=== PATIENT | female | born 1935 | race Caucasian/White ===

== ENCOUNTER → 2017-01-29 | Outpatient (CLI) | payer OTHER ==
[2017-01-29 10:16] LABS: Basophils # (auto) 0 uL; Basophils % (auto) 0.4 % (0.0-2.0); Eosinophils # (auto) 0.4 uL; Eosinophils % (auto) 3.9 % (0.0-7.0); Hematocrit 41.1 % (36.0-46.0); Hemoglobin 13.4 g/dL (12.2-16.2); Lymphocytes # (auto) 2.8 uL; Lymphocytes % (auto) 27.2 % (10.0-50.0); Mean Corpuscular Hemoglobin 30.3 pg (28.0-32.0); Mean Corpuscular Hgb Conc. 32.6 g/dL (32.0-36.0); Mean Corpuscular Volume 92.8 fL (80.0-100.0); Mean Platelet Volume 7.7 fL (7.4-10.4); Monocytes # (auto) 0.6 uL; Monocytes % (auto) 6.1 % (0.0-12.0); Neutrophils # (auto) 6.4 uL; Neutrophils % (auto) 62.4 % (37.0-80.0); Platelet Count (auto) 446 10^3/uL (140-450); Red Cell Distribution Width 14.1 % (11.6-16.0); White Blood Cell 10.2 10^3/uL (4.4-10.8)
== END | disposition home or self-care (01) ==
LOC: LAB 08:50
PROVIDERS: ATTEND Internal Medicine
DX: E11.9 Type 2 diabetes mellitus without complications (principal)
CPT/HCPCS: 36415; 80061; 83036; 85025; 85652; 86141

== ENCOUNTER → 2017-05-21 | Outpatient (CLI) | payer OTHER ==
[2017-05-21 12:53] LABS: Albumin 3.8 g/dL (3.4-5.0); BUN/Creatinine Ratio 17.8; Bilirubin, Total 0.6 mg/dL (0.2-1.0); Calcium 9.2 mg/dL (8.5-10.1); Potassium 4.1 mmol/L (3.5-5.1); Total Protein 7.7 g/dL (6.4-8.2); Uric Acid 6.6 mg/dL (2.6-6.0)
== END | disposition home or self-care (01) ==
LOC: LAB 11:11
PROVIDERS: ATTEND Internal Medicine
DX: E11.9 Type 2 diabetes mellitus without complications (principal); N18.3 Chronic kidney disease, stage 3 (moderate)
CPT/HCPCS: 36415; 80053; 83036; 84439; 84443; 84550

== ENCOUNTER → 2017-09-11 | Outpatient (CLI) | payer OTHER ==
[2017-09-11 11:38] LABS: Albumin 3.7 g/dL (3.4-5.0); BUN/Creatinine Ratio 17.1; Bilirubin, Total 1.1 mg/dL (0.2-1.0); Calcium 9.2 mg/dL (8.5-10.1); Potassium 4.2 mmol/L (3.5-5.1); Total Protein 7.7 g/dL (6.4-8.2)
== END | disposition home or self-care (01) ==
LOC: LAB 10:13
PROVIDERS: ATTEND Internal Medicine
DX: E11.22 Type 2 diabetes mellitus with diabetic chronic kidney disease (principal); N18.3 Chronic kidney disease, stage 3 (moderate); F11.20 Opioid dependence, uncomplicated
CPT/HCPCS: 36415; 80053; 80061; 80307; 83036

== ENCOUNTER → 2018-02-07 | Outpatient (CLI) | payer OTHER ==
[2018-02-07 11:27] LABS: BUN/Creatinine Ratio 12.8; Bilirubin, Total 0.6 mg/dL (0.2-1.0); Calcium 9.7 mg/dL (8.5-10.1); Potassium 4.3 mmol/L (3.5-5.1); Total Protein 7.9 g/dL (6.4-8.2); Uric Acid 5.5 mg/dL (2.6-6.0)
== END | disposition home or self-care (01) ==
LOC: LAB 10:52
PROVIDERS: ATTEND Internal Medicine
DX: E11.9 Type 2 diabetes mellitus without complications (principal); E78.5 Hyperlipidemia, unspecified
CPT/HCPCS: 36415; 80053; 80061; 83036; 84550

== ENCOUNTER → 2018-05-09 | Outpatient (CLI) | payer OTHER ==
[2018-05-09 13:32] LABS: Albumin 3.7 g/dL (3.4-5.0); BUN/Creatinine Ratio 16.4; Calcium 8.7 mg/dL (8.5-10.1); Potassium 4.4 mmol/L (3.5-5.1)
[2018-05-09 13:35] LABS: Bilirubin, Total 0.7 mg/dL (0.2-1.0); Total Protein 7.7 g/dL (6.4-8.2)
[2018-05-09 13:38] LABS: Basophils # (auto) 0.1 uL; Basophils % (auto) 0.5 % (0.0-2.0); Eosinophils # (auto) 0.4 uL; Eosinophils % (auto) 3.7 % (0.0-7.0); Hematocrit 39.1 % (36.0-46.0); Hemoglobin 13.3 g/dL (12.2-16.2); Lymphocytes # (auto) 3.5 uL; Lymphocytes % (auto) 35.2 % (10.0-50.0); Mean Corpuscular Hemoglobin 31.9 pg (28.0-32.0); Mean Corpuscular Hgb Conc. 34.1 g/dL (32.0-36.0); Mean Corpuscular Volume 93.6 fL (80.0-100.0); Monocytes # (auto) 0.6 uL; Monocytes % (auto) 5.9 % (0.0-12.0); Neutrophils # (auto) 5.5 uL; Neutrophils % (auto) 54.7 % (37.0-80.0); Platelet Count (auto) 308 10^3/uL (140-450); Red Blood Cells 4.18 10^6/uL (4.0-5.20); Red Cell Distribution Width 13.6 % (11.8-14.3); Uric Acid 5.1 mg/dL (2.6-6.0)
== END | disposition home or self-care (01) ==
LOC: LAB 12:46
PROVIDERS: ATTEND Internal Medicine
DX: I12.9 Hypertensive chronic kidney disease with stage 1 through stage 4 chronic kidney disease, or unspecified chronic kidney disease (principal); E11.22 Type 2 diabetes mellitus with diabetic chronic kidney disease; N18.3 Chronic kidney disease, stage 3 (moderate)
CPT/HCPCS: 36415; 80053; 82306; 83036; 83970; 84550; 85025

== ENCOUNTER 2018-08-09 17:38 | Emergency (ER) | payer OTHER ==
[~2018-08-09] VITALS: Ht 162.6 cm; Wt 57.2 kg
[2018-08-09 20:19] VITALS: BP 131/80
[2018-08-09] MEDS ORDERED: MEPERIDINE HCL (25 MG/ML) 1ML VIAL IV ONE (21:00)
[2018-08-09] MEDS ORDERED: SODIUM CHLORIDE 0.9% 1,000 ML IV ONE (21:00)
[2018-08-09] MEDS ORDERED: ONDANSETRON HCL 4 MG/2 ML VIAL IV ONE (21:00)
== END 2018-08-09 22:04 | disposition home or self-care (01) ==
LOC: ER 17:43
DX: S00.93XA Contusion of unspecified part of head, initial encounter (principal); M62.838 Other muscle spasm; I10 Essential (primary) hypertension; W01.0XXA Fall on same level from slipping, tripping and stumbling without subsequent striking against object, initial encounter; Y93.89 Activity, other specified; Y99.8 Other external cause status; Y92.89 Other specified places as the place of occurrence of the external cause
CPT/HCPCS: 70450; 96374; 96375; 99284; J2175; J2405; J7030

== ENCOUNTER 2019-01-31 01:42 | Emergency (ER) | payer OTHER ==
[~2019-01-31] VITALS: Ht 160 cm; Wt 59.0 kg
[2019-01-31 02:35] LABS: Basophils # (auto) 0.1 uL; Basophils % (auto) 0.7 % (0.0-2.0); Eosinophils # (auto) 0.2 uL; Eosinophils % (auto) 1.4 % (0.0-7.0); Hematocrit 42.5 % (36.0-46.0); Hemoglobin 14.2 g/dL (12.2-16.2); Lymphocytes # (auto) 2.5 uL; Lymphocytes % (auto) 21.5 % (10.0-50.0); Mean Corpuscular Hemoglobin 31.2 pg (28.0-32.0); Mean Corpuscular Hgb Conc. 33.5 g/dL (32.0-36.0); Mean Corpuscular Volume 93.2 fL (80.0-100.0); Monocytes # (auto) 0.6 uL; Monocytes % (auto) 4.8 % (0.0-12.0); Neutrophils # (auto) 8.3 uL; Neutrophils % (auto) 71.6 % (37.0-80.0); Nucleated Red Blood Cells % 0.1 %; Platelet Count (auto) 307 10^3/uL (140-450); Red Blood Cells 4.56 10^6/uL (4.0-5.20); Red Cell Distribution Width 13.2 % (11.8-14.3); White Blood Cell 11.6 10^3/uL (4.4-10.8)
[2019-01-31 02:53] LABS: INR 1.01 (0.9-1.15); Prothrombin Time 10.8 sec (9.27-12.13)
[2019-01-31 02:54] LABS: Alanine Aminotransferase 18 U/L (13-56); Albumin 3.8 g/dL (3.4-5.0); Anion Gap 8 (5-15); Aspartate Aminotransferase 15 U/L (15-37); BUN/Creatinine Ratio 19.8; Blood Urea Nitrogen 20 mg/dL (7-18); Calcium 9.1 mg/dL (8.5-10.1); Carbon Dioxide 24 mmol/L (21-32); Chloride 105 mmol/L (98-107); GFR African American 67 mL/min; GFR Non-African American 56 mL/min; Glucose 134 mg/dL (74-106); Potassium 3.6 mmol/L (3.5-5.1); Sodium 137 mmol/L (136-145)
[2019-01-31 02:58] LABS: Alkaline Phosphatase 67 U/L (45-117); Total Protein 7.6 g/dL (6.4-8.2)
[2019-01-31] MEDS ORDERED: ONDANSETRON HCL 4 MG/2 ML VIAL IV ONE (06:00)
[2019-01-31 06:28] VITALS: BP 146/72
== END 2019-01-31 08:36 | disposition home or self-care (01) ==
LOC: EDBD 01:42 → ER 01:50
DX: S46.912A Strain of unspecified muscle, fascia and tendon at shoulder and upper arm level, left arm, initial encounter (principal); R42 Dizziness and giddiness; E11.9 Type 2 diabetes mellitus without complications; E78.5 Hyperlipidemia, unspecified; I10 Essential (primary) hypertension; Z90.710 Acquired absence of both cervix and uterus; W19.XXXA Unspecified fall, initial encounter; Y93.89 Activity, other specified; Y92.89 Other specified places as the place of occurrence of the external cause; Y99.8 Other external cause status
CPT/HCPCS: 36415; 71045; 74176; 80053; 83880; 84484; 85025; 85610; 85730; 93005; 96374; 99284; J2405

== ENCOUNTER → 2019-02-14 | Outpatient (CLI) | payer OTHER ==
[2019-02-14 09:49] LABS: Urine Bacteria FEW /hpf (None Seen); Urine Blood Negative /uL (Negative); Urine Specific Gravity 1.013 (1.001-1.035); Urine WBC 1 /hpf (0 - 5)
[2019-02-14 09:58] LABS: Cholesterol 162 mg/dL (< 200); HDL Cholesterol 66 mg/dL (40-59); LDL Cholesterol 79 mg/dL (< 100); Triglycerides 99 mg/dL (< 150)
[2019-02-14 11:12] LABS: Alcohol, Urine < 3.0 mg/dL (0-5); Amphetamine Screen, Urine NEGATIVE (NEGATIVE); Barbiturate Scree,Urine NEGATIVE (NEGATIVE); Benzodiazephine Screen, Urine NEGATIVE (NEGATIVE); Cannabinoid Screen, Urine NEGATIVE (NEGATIVE); Cocaine Screen, Urine NEGATIVE (NEGATIVE); Opiate Scree,Urine POSITIVE (NEGATIVE); Phencyclidine Screen, Urine NEGATIVE (NEGATIVE)
== END | disposition home or self-care (01) ==
LOC: LAB 08:59
PROVIDERS: ATTEND Internal Medicine
DX: E11.9 Type 2 diabetes mellitus without complications (principal); F11.90 Opioid use, unspecified, uncomplicated
CPT/HCPCS: 36415; 80061; 80307; 81001; 83036

== ENCOUNTER → 2019-02-21 | Outpatient (CLI) | payer OTHER | END | disposition home or self-care (01) | LOC: LAB 11:18 | PROVIDERS: ATTEND Internal Medicine | DX: F41.9 Anxiety disorder, unspecified (principal); I10 Essential (primary) hypertension; E11.9 Type 2 diabetes mellitus without complications | CPT/HCPCS: 36415; 84439; 84443 ==

== ENCOUNTER → 2019-08-15 | Outpatient (CLI) | payer OTHER ==
[2019-08-15 12:31] LABS: Albumin 3.8 g/dL (3.4-5.0); Calcium 9.4 mg/dL (8.5-10.1); Potassium 4.1 mmol/L (3.5-5.1)
[2019-08-15 12:35] LABS: BUN/Creatinine Ratio 14.3; Bilirubin, Total 0.8 mg/dL (0.2-1.0); Total Protein 7.3 g/dL (6.4-8.2); Uric Acid 4.8 mg/dL (2.6-6.0)
== END | disposition home or self-care (01) ==
LOC: LAB 11:14
PROVIDERS: ATTEND Internal Medicine
DX: E11.22 Type 2 diabetes mellitus with diabetic chronic kidney disease (principal); N18.3 Chronic kidney disease, stage 3 (moderate)
CPT/HCPCS: 36415; 80053; 82306; 83036; 84550

== ENCOUNTER → 2019-09-17 | Outpatient (CLI) | payer OTHER ==
[2019-09-17 14:29] LABS: Alcohol, Urine < 3.0 mg/dL (0-5); Amphetamine Screen, Urine NEGATIVE (NEGATIVE); Barbiturate Scree,Urine NEGATIVE (NEGATIVE); Benzodiazephine Screen, Urine NEGATIVE (NEGATIVE); Cannabinoid Screen, Urine NEGATIVE (NEGATIVE); Cocaine Screen, Urine NEGATIVE (NEGATIVE); Phencyclidine Screen, Urine NEGATIVE (NEGATIVE)
[2019-09-17 14:36] LABS: Opiate Scree,Urine POSITIVE (NEGATIVE)
== END | disposition home or self-care (01) ==
LOC: LAB 13:20
PROVIDERS: ATTEND Internal Medicine
DX: F11.20 Opioid dependence, uncomplicated (principal)
CPT/HCPCS: 80307

== ENCOUNTER 2020-04-27 12:23 | Inpatient (IN) | payer OTHER ==
[~2020-04-27] VITALS: Ht 152.4 cm; Wt 42.2 kg
[2020-04-27] MEDS ORDERED: SODIUM CHLORIDE 0.9% 1,000 ML IV ONE (12:50)
[2020-04-27 13:46] LABS: Basophils # (auto) 0.1 10 ^3/uL (0-0.2); Eosinophils # (auto) 0.2 10 ^3/uL (0-0.8); Eosinophils % (auto) 2.5 % (0.0-7.0); Hematocrit 32.9 % (36.0-46.0); Hemoglobin 10.6 g/dL (12.2-16.2); Lymphocytes # (auto) 2.4 10 ^3/uL (0.4-5.4); Lymphocytes % (auto) 31.1 % (10.0-50.0); Mean Corpuscular Hemoglobin 29.3 pg (28.0-32.0); Mean Corpuscular Hgb Conc. 32.4 g/dL (32.0-36.0); Mean Corpuscular Volume 90.3 fL (80.0-100.0); Monocytes # (auto) 0.7 10 ^3/uL (0-1.3); Monocytes % (auto) 8.7 % (0.0-12.0); Neutrophils # (auto) 4.4 10 ^3/uL (1.6-8.6); Neutrophils % (auto) 56.7 % (37.0-80.0); Nucleated Red Blood Cells % 0.1 %; Platelet Count (auto) 366 10^3/uL (140-450); Red Blood Cells 3.64 10^6/uL (4.0-5.20); Red Cell Distribution Width 15.3 % (11.8-14.3); White Blood Cell 7.7 10^3/uL (4.4-10.8)
[2020-04-27 14:29] LABS: Albumin 2.3 g/dL (3.4-5.0); Anion Gap 6 (5-15); Calcium 8.4 mg/dL (8.5-10.1); Carbon Dioxide 27 mmol/L (21-32); Chloride 107 mmol/L (98-107); Glucose 109 mg/dL (74-106); Sodium 140 mmol/L (136-145)
[2020-04-27 14:35] LABS: Alanine Aminotransferase 13 U/L (13-56); Alkaline Phosphatase 65 U/L (45-117); Aspartate Aminotransferase 16 U/L (15-37); Bilirubin, Total 0.4 mg/dL (0.2-1.0); GFR African American 118 mL/min; GFR Non-African American 97 mL/min
[2020-04-27 14:37] LABS: Potassium 2.9 mmol/L (3.5-5.1)
[2020-04-27 14:49] LABS: BUN/Creatinine Ratio 17.7; Blood Urea Nitrogen 11 mg/dL (7-18)
[2020-04-27 15:15] LABS: Urine Amorphous Crystal FEW /hpf (None Seen); Urine Bacteria NONE SEEN /hpf (None Seen); Urine Blood Negative /uL (Negative); Urine Mucus FEW (None Seen); Urine Specific Gravity 1.016 (1.001-1.035); Urine WBC 2 /hpf (0 - 5)
[2020-04-27 15:27] LABS: Amphetamine Screen, Urine NEGATIVE (NEGATIVE); Barbiturate Scree,Urine NEGATIVE (NEGATIVE); Benzodiazephine Screen, Urine NEGATIVE (NEGATIVE); Cannabinoid Screen, Urine NEGATIVE (NEGATIVE); Cocaine Screen, Urine NEGATIVE (NEGATIVE); Phencyclidine Screen, Urine NEGATIVE (NEGATIVE)
[2020-04-27 15:35] LABS: Opiate Scree,Urine POSITIVE (NEGATIVE)
[2020-04-27] MEDS: POTASSIUM CHL 20MEQ/100ML 100 ML IV SCH ×2 (15:53→17:42)
[2020-04-27] MEDS ORDERED: VANCOMYCIN PER PHARMACY 0 MG IV SCH (16:15)
[2020-04-27] MEDS ORDERED: MORPHINE SULF INJ 2 MG/ML SYRINGE 1ML IV PRN ×2 (16:15)
[2020-04-27] MEDS ORDERED: ONDANSETRON HCL 4 MG/2 ML VIAL IV PRN (16:15)
[2020-04-27] MEDS ORDERED: NITROGLYCERIN 0.4 MG SL TAB SL PRN (16:15)
[2020-04-27] MEDS ORDERED: traMADol HCL 50 MG TAB PO PRN (16:15)
[2020-04-27] MEDS: SODIUM CHLORIDE 0.9% 1,000 ML IV SCH (16:35)
--- NOTE | 2020-04-27 17:19 | NUR ---
AIR MATTRESS: Specialty air mattress ordered at [facility],Reference # [id number]; ETA 04/27/20 @2316, Call [facility] if need to follow up at [phone] Addendum: 04/27/20 at 1721 by Deysi Juárez RN Amended: Links added.
[2020-04-27] MEDS: PIPERACILLIN-TAZOB 3.375GM 100 ML IV SCH ×2 (17:42→23:21)
[2020-04-27 20:40] VITALS: BP 92/67
--- NOTE | 2020-04-27 20:40 | NUR ---
Telemetry admit from ER ALEXEYAYO admitted to Telemetry unit after SBAR received. Patient oriented to ANDREW SANDERS, RN primary RN, unit, room, bed, and unit policies regarding patient care and visiting hours. Patient now on continuous telemetry monitoring, tele box # 4 and telemetry reading on arrival to unit is [id number]. Patient on speciality mattressed, meraz draining to gravity, patient AOX1.
[2020-04-27 21:44] VITALS: BP 92/67
[2020-04-27] MEDS: VANCOMYCIN 750mg/250ml 250 ML IV SCH (21:48)
--- NOTE | 2020-04-27 22:40 | NUR ---
Spoke with Family Member Spoke with Cathy Noble for admission questions. Cathy was not able to recall patient's home medications, nor pharmacy.
[2020-04-28] MEDS: SODIUM CHLORIDE 0.9% 1,000 ML IV SCH (05:35)
[2020-04-28 05:47] VITALS: BP 119/67
[2020-04-28 05:53] LABS: Basophils # (auto) 0.1 10 ^3/uL (0-0.2); Basophils % (auto) 0.6 % (0.0-2.0); Eosinophils # (auto) 0.3 10 ^3/uL (0-0.8); Eosinophils % (auto) 2.9 % (0.0-7.0); Hematocrit 34.5 % (36.0-46.0); Lymphocytes # (auto) 1.6 10 ^3/uL (0.4-5.4); Lymphocytes % (auto) 17.9 % (10.0-50.0); Mean Corpuscular Hemoglobin 28.9 pg (28.0-32.0); Mean Corpuscular Hgb Conc. 31.8 g/dL (32.0-36.0); Monocytes # (auto) 0.7 10 ^3/uL (0-1.3); Monocytes % (auto) 7.7 % (0.0-12.0); Neutrophils # (auto) 6.5 10 ^3/uL (1.6-8.6); Neutrophils % (auto) 70.9 % (37.0-80.0); Nucleated Red Blood Cells % 0.1 %; Platelet Count (auto) 309 10^3/uL (140-450); Red Cell Distribution Width 15.8 % (11.8-14.3); White Blood Cell 9.1 10^3/uL (4.4-10.8)
[2020-04-28] MEDS: PIPERACILLIN-TAZOB 3.375GM 100 ML IV SCH ×3 (06:00→18:41)
[2020-04-28 06:19] LABS: Potassium 3.4 mmol/L (3.5-5.1)
[2020-04-28 06:32] LABS: Albumin 2.2 g/dL (3.4-5.0); BUN/Creatinine Ratio 15.4; Bilirubin, Total 0.6 mg/dL (0.2-1.0); Calcium 8.3 mg/dL (8.5-10.1); Total Protein 5.7 g/dL (6.4-8.2)
--- NOTE | 2020-04-28 07:05 | NUR ---
Closing Note Endorsed care to dayshift nurse. No S/S of distress/SOB or pain.
--- NOTE | 2020-04-28 07:30 | NUR ---
RECEIVED REPORT FROM [facility] SHIFT RN. AWAKE, ALERT AND ORIENTED TO SELF. NO SOB OR DISTRESS REPORTED, DENIES PAIN AT THIS TIME. PLAN OF CARE DISCUSSED. ENCOURAGED TO CALL FOR ASSISTANCE PRN. BED IN LOW AND LOCKED POSITION, CALL LIGHT AND PHONE WITHIN REACH. ZENY NOTED, DRAINING CLEAR SHAKEEL. WILL CONTINUE TO MONITOR Q1HR AND PRN.
[2020-04-28 08:00] VITALS: BP 130/88
[2020-04-28 09:00] VITALS: BP 126/73
--- NOTE | 2020-04-28 11:00 | NUR ---
WOUND CARE NOTE: IN TO SEE PATIENT AT THIS TIME PER WOUND CARE CONSULT REQUEST. 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 PATIENT IS RESTING ON SPECIALTY AIR MATTRESS (P 500). CURRENT [place] SCORE IS 11. WOUND PHOTOS TAKEN UPON ADMIT BY BEDSIDE NURSE FOR REFERENCE. PATIENT HAS DEMENTIA, AND IS MAX ASSIST FOR HER ADL'S, INCLUDING TURNING/REPOSITIONING. PATIENT IS NOTED TO HAVE A PINK COLLAGEN SCAR TO THE LEFT HIP. PATIENT TURNED TO LEFT SIDE. 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 THERE IS 2 CM UNDERMINING TO ENTIRE WOUND EDGES.PATIENT HAS LIGHT TO MODERATE SEROUS DRAINAGE WITH LIGHT ODOR. CLEANSED WOUND WITH WOUND CLEANSER, PATTED DRY WITH STERILE GAUZE. PACKED WOUND WITH BETADINE WET TO DRY, UTILIZING KERLIX, STERILE 4 X 4'S. APPLIED ALGINATE OVER WOUND. COVERED ALL WITH OPTIFOAM GENTLE SACRAL DRESSING. ADVISED DR. MARISCAL OF PATIENT'S WOUND STATUS. RECOMMEND: FREQUENT TURN SCHEDULE Q 2 HOURS, PRN CONDITION PERMITS, WITH PRESSURE REDISTRIBUTION USING PILLOWS/WEDGES, DAILY/PRN DRESSING CHANGE TO SACRAL WOUND, DIETARY CONSULT, SPECIALTY AIR BED, ANIVAL FOAM BOOTS, SKIN/WOUND CARE PLAN, CONTINUED MONITORING BY WOUND CARE TEAM. Addendum: 04/28/20 at 1436 by Jud Beckford RN Amended: Links added.
[2020-04-28 13:00] VITALS: BP 126/73
[2020-04-28] MEDS ORDERED: LACTULOSE 20Gm/30ML SOLN PO ONE (14:00)
[2020-04-28] MEDS ORDERED: MORPHINE SULF INJ 2 MG/ML SYRINGE 1ML IV PRN (14:15)
--- NOTE | 2020-04-28 14:35 | NUR ---
Nutrition Assessment Notes Please refer to link for full assessment notes. Est Energy needs: 900-1035 kcals (20-23 kcal/kgBW) Est Protein needs: 55-68 gms/day (1.2-1.5 gm/kgBW) d/t P/U Will continue to monitor and reassess prn. Addendum: 04/28/20 at [address] Amended: Links added. Addendum: 04/28/20 at [address] Additional Recommendations: Suggest a daily MVI with 500mg VitC BID
[2020-04-28 17:00] VITALS: BP_SYST 120; BP_SYST 169; BP_DIAS 77; BP_DIAS 82
[2020-04-28] MEDS: SOD CHL 0.45% WITH 20MEQ KCL 1,000 ML IV SCH (17:21)
--- NOTE | 2020-04-28 18:00 | NUR ---
Patient is now Med/surg. Tele discontinued and will send to ICU.
--- NOTE | 2020-04-28 18:44 | NUR ---
checked in on patient few minutes after hanging 1800 antibiotic. Will resume scheduled meds once a new IV line is established. Addendum: 04/28/20 at 1850 by Susie Silva RN Patient had pulled out peripheral IV due to periodic confusion.
--- NOTE | 2020-04-28 20:00 | NUR ---
Opening Shift Note Assumed care of patient. Awake, alert and oriented x1. Patient has periods of confusion. No S/S of distress/SOB or pain. Instructed on POC and to call for assist PRN. Macdonald catheter off the floor, patent and draining yellow colored urine. Bed locked, in lowest position, call light within reach, side rails up x2, bed alarm on. Will continue to monitor for changes Q1hr and PRN.
[2020-04-28] MEDS ORDERED: MORP15TA PO ×2 (20:15)
[2020-04-28] MEDS ORDERED: LORA0.5T20 PO (20:18)
[2020-04-28] MEDS ORDERED: LISI-646 PO (20:18)
[2020-04-28] MEDS ORDERED: HAL1T PO (20:18)
[2020-04-28] MEDS ORDERED: ACET-1156 PO (20:19)
--- NOTE | 2020-04-28 20:30 | NUR ---
IV insertion IV access obtained, via clean sterile technique by inserting 22 gauge catheter at left wrist after 1 attempt. IV secured properly. No trauma to site. Patient tolerated procedure well.
[2020-04-28] MEDS: VANCOMYCIN 750mg/250ml 250 ML IV SCH (21:18)
--- NOTE | 2020-04-28 21:30 | NUR ---
Nursing Note Patient had a BM. Changed linens and patients gown. Will continue with care
[2020-04-28 23:12] VITALS: BP 124/74
[2020-04-29] MEDS: PIPERACILLIN-TAZOB 3.375GM 100 ML IV SCH ×2 (02:13→06:01)
[2020-04-29 05:32] VITALS: BP 138/73
[2020-04-29 06:28] LABS: Basophils # (auto) 0.1 10 ^3/uL (0-0.2); Basophils % (auto) 1.1 % (0.0-2.0); Eosinophils # (auto) 0.1 10 ^3/uL (0-0.8); Eosinophils % (auto) 1.6 % (0.0-7.0); Hematocrit 32.5 % (36.0-46.0); Hemoglobin 10.6 g/dL (12.2-16.2); Lymphocytes % (auto) 23.1 % (10.0-50.0); Mean Corpuscular Hemoglobin 29.3 pg (28.0-32.0); Mean Corpuscular Hgb Conc. 32.5 g/dL (32.0-36.0); Mean Corpuscular Volume 90.3 fL (80.0-100.0); Monocytes # (auto) 0.6 10 ^3/uL (0-1.3); Monocytes % (auto) 6.5 % (0.0-12.0); Neutrophils # (auto) 5.9 10 ^3/uL (1.6-8.6); Neutrophils % (auto) 67.7 % (37.0-80.0); Nucleated Red Blood Cells % 0.1 %; Platelet Count (auto) 338 10^3/uL (140-450); Red Blood Cells 3.61 10^6/uL (4.0-5.20); Red Cell Distribution Width 16.2 % (11.8-14.3); White Blood Cell 8.7 10^3/uL (4.4-10.8)
[2020-04-29 06:48] LABS: BUN/Creatinine Ratio 13.2; Calcium 8.3 mg/dL (8.5-10.1); Potassium 3.2 mmol/L (3.5-5.1)
--- NOTE | 2020-04-29 07:21 | NUR ---
Closing Note Endorsed care to day shift nurse. No S/S of distress, SOB or pain noted.
--- NOTE | 2020-04-29 07:32 | NUR ---
Opening Shift Note Assumed care of patient from [facility] shift rn. Asleep at time of encounter but easily aroused by name. Patient has periods of confusion. No S/S of distress/SOB or pain. Instructed on POC and to call for assist PRN. Macdonald catheter patent and draining yellow colored urine. Bed locked, in lowest position, call light within reach, side rails up x2, bed alarm on. Will continue to monitor for changes Q1hr and PRN.
[2020-04-29 08:00] VITALS: BP 141/70
[2020-04-29 09:09] VITALS: BP 141/70
[2020-04-29] MEDS: SOD CHL 0.45% WITH 20MEQ KCL 1,000 ML IV SCH (10:00)
[2020-04-29] MEDS ORDERED: LACTULOSE 20Gm/30ML SOLN PO SCH (10:00)
[2020-04-29] MEDS ORDERED: POTASSIUM EFFERVESENT TAB 25 MEQ PO ONE (10:15)
[2020-04-29 12:15] VITALS: BP 132/74
--- NOTE | 2020-04-29 12:56 | NUR ---
SS consult regarding hospice. Per Daughter, felix, pt was on service with [facility] ( setup by PCP) and lived with her elderly spouse prior to admission. Per daughter pt's wound increased due to the limited care of once a week wound care by [facility] and spouse being unable to turn pt properly. Per daughter she does not want [facility] and is requesting another hospice with caregivers. Provided list of hospice agencies. Daughter called back and stated she'd gotten information on [facility] hospice ( medicare certified agency) as her choice. Daughter states she's already contacted agency and they will be helping her with VA aid and attendance program for assistance with paying for private pay caregivers. Daughter states she has turned in [employer] application and has secured a private pay caregiver. Faxed clinical information and pt accepted onto service. Hospital bed to be delivered today by 4 and transportation to be setup for 4:30 through [facility].
--- NOTE | 2020-04-29 14:08 | NUR ---
Called and spoke to Derrick BuilderSalvador who confirmed that Patient will be picked up by [facility] at 1730 and Hospice care to be provided by [facility].
[2020-04-29 16:17] VITALS: BP 158/74
--- NOTE | 2020-04-29 18:40 | NUR ---
Patient discharged at this time per MD's order. Pt is alert and oriented to self. Discharged with Macdonald patent and draining clear yellow. Spoke to daughter (Cathy) and (Jonatan) about of discharge instructions.
--- NOTE | 2020-04-29 18:41 | NUR ---
Discharge wound photo taken
== END 2020-04-29 18:40 | disposition hospice, home (50) | DRG 539 ==
LOC: EDUNIT# 12:23 → EDBD 12:23 → ER 12:23 → TELE 12:24 → TELE-EAST 20:40
PROVIDERS: ADMIT Nurse Practitioner Acute Care; ATTEND Internal Medicine
DX: M46.28 Osteomyelitis of vertebra, sacral and sacrococcygeal region (principal); L89.154 Pressure ulcer of sacral region, stage 4; G93.41 Metabolic encephalopathy; E43 Unspecified severe protein-calorie malnutrition; R64 Cachexia; L89.159 Pressure ulcer of sacral region, unspecified stage; E87.6 Hypokalemia; D64.9 Anemia, unspecified; F03.90 Unspecified dementia, unspecified severity, without behavioral disturbance, psychotic disturbance, mood disturbance, and anxiety; I10 Essential (primary) hypertension; L89.320 Pressure ulcer of left buttock, unstageable; E78.00 Pure hypercholesterolemia, unspecified; R62.7 Adult failure to thrive; K59.00 Constipation, unspecified; M86.9 Osteomyelitis, unspecified; J45.909 Unspecified asthma, uncomplicated; F41.9 Anxiety disorder, unspecified; Z90.710 Acquired absence of both cervix and uterus; Z79.84 Long term (current) use of oral hypoglycemic drugs; Z79.899 Other long term (current) drug therapy
CPT/HCPCS: 36415; 51702; 71045; 72192; 80048; 80053; 80307; 80320; 81001; 83036; 83605; 84100; 84443; 84484; 85025; 85652; 87040; 87077; 87186; 87205; 96361; 96365; 96368; 99291; G0378; J2543; J3480